=== PATIENT | male | born 1995 | race Caucasian/White ===

== ENCOUNTER 2018-07-31 18:20 | Emergency (ER) | payer SELFPAY ==
[~2018-07-31] VITALS: Ht 167.6 cm; Wt 63.6 kg
[2018-07-31] MEDS ORDERED: PERTUSS(ACELL),DIPH,TET VAC/PF 0.5 ML VIAL IM ONE (19:45)
[2018-07-31] MEDS ORDERED: ACETAMINOPHEN 325 MG TABLET PO ONE (19:45)
[2018-07-31 20:39] VITALS: BP 121/71
[2018-07-31] MEDS ORDERED: LIDOCAINE 1% 10 ML VIAL INJ ONE (20:45)
[2018-07-31] MEDS ORDERED: BACITRACIN 0.9 GM PACKET OINTMENT TP ONE (21:00)
== END 2018-07-31 21:08 | disposition home or self-care (01) ==
LOC: EMS 18:21
DX: S51.011A Laceration without foreign body of right elbow, initial encounter (principal); W25.XXXA Contact with sharp glass, initial encounter; Y93.89 Activity, other specified; Y92.89 Other specified places as the place of occurrence of the external cause; Y99.8 Other external cause status
CPT/HCPCS: 12001; 73080; 90471; 90715; 99283; J3490

== ENCOUNTER 2018-08-10 12:06 | Emergency (ER) | payer SELFPAY ==
[~2018-08-10] VITALS: Ht 167.6 cm; Wt 68.2 kg
[2018-08-10 12:11] VITALS: BP 142/76
[2018-08-10] MEDS ORDERED: IBUP-1506 PO (12:15)
== END 2018-08-10 13:22 | disposition home or self-care (01) ==
LOC: EMS 12:06
DX: S51.011D Laceration without foreign body of right elbow, subsequent encounter (principal); R03.0 Elevated blood-pressure reading, without diagnosis of hypertension; Z48.02 Encounter for removal of sutures; W45.8XXD Other foreign body or object entering through skin, subsequent encounter